=== PATIENT | male | born 1980 | race Caucasian/White ===

== ENCOUNTER 2016-09-12 19:18 | Emergency (ER) | payer OTHER | END 2016-09-12 22:29 | disposition home or self-care (01) | LOC: FER 19:18 | DX: S42.021A Displaced fracture of shaft of right clavicle, initial encounter for closed fracture (principal); S01.01XA Laceration without foreign body of scalp, initial encounter; M25.561 Pain in right knee; F17.210 Nicotine dependence, cigarettes, uncomplicated; V86.59XA Driver of other special all-terrain or other off-road motor vehicle injured in nontraffic accident, initial encounter | CPT/HCPCS: 73030 ==